=== PATIENT | male | born 1945 | race Hispanic/Latino ===

== ENCOUNTER → 2024-07-10 | Outpatient (CLI) | payer OTHER ==
--- NOTE | 2024-07-14 09:02 | HMCSR ---
APPROVED REPORT Laterality: Bilateral Indications r09.89 Surgery/Intervention Carotid Stent: right Doppler Spectral Velocity Analysis PSV / EDVPSV / EDV ECA (R) 144 / cm/sECA (L) 97 / cm/s dICA (R) 128 / 32 cm/sdICA (L) Amar[place] (R) 108 / 29 cm/smICA (L) pICA (R) 101 / 25 cm/spICA (L) dCCA (R) 77 / 16 cm/sdCCA (L) 30 / 7 cm/s mCCA (R) 79 / 19 cm/smCCA (L) 33 / 8 cm/s pCCA (R) 63 / 18 cm/spCCA (L) 97 / 3 cm/s Vert (R) 44 / cm/sVert (L) 52 / cm/s Subl. (R) 371 / cm/sSubl. (L) 266 / cm/s ICA/CCA 1.62ICA/CCA Technologist Impression Mild plaque noted in the bilateral carotids. Evidence of a stent in the right distal CCA into the ICA, without stenosis. Left ICA appears chronically occluded. Bilateral vertebral arteries appear antegrade. Velocities in the right subclavian artery are suggestive of >75% stenosis. Velocities in the left subclavian artery are suggestive of >50% stenosis. Conclusion Mild plaque noted in the bilateral carotids. Evidence of a stent in the right distal CCA into the ICA, without stenosis. Left ICA appears chronically occluded. Bilateral vertebral arteries appear antegrade. Velocities in the right subclavian artery are suggestive of >75% stenosis. Velocities in the left subclavian artery are suggestive of >50% stenosis. Conclusion Mild plaque noted in the bilateral carotids. Evidence of a stent in the right distal CCA into the ICA, without stenosis. Left ICA appears chronically occluded. Bilateral vertebral arteries appear antegrade. Velocities in the right subclavian artery are suggestive of >75% stenosis. Velocities in the left subclavian artery are suggestive of >50% stenosis.
== END | disposition home or self-care (01) ==
LOC: SHCH 15:24
PROVIDERS: ATTEND Internal Medicine Cardiovascular Disease
DX: I65.23 Occlusion and stenosis of bilateral carotid arteries (principal); R09.89 Other specified symptoms and signs involving the circulatory and respiratory systems
CPT/HCPCS: 93880